=== PATIENT | female | born 1965 | race Caucasian/White ===

== ENCOUNTER 2018-04-10 14:25 | Emergency (ER) | payer MEDICAID ==
[~2018-04-10] VITALS: Ht 154.9 cm; Wt 105.0 kg
[~2018-04-10 14:25] MED LIST: IBUP-1986 PO
[2018-04-10 14:26] VITALS: BP 141/92
[2018-04-10] MEDS ORDERED: CYCL-1 PO (15:01)
== END 2018-04-10 15:48 | disposition home or self-care (01) ==
LOC: ER 14:25
DX: S13.4XXA Sprain of ligaments of cervical spine, initial encounter (principal); R42 Dizziness and giddiness; V89.2XXA Person injured in unspecified motor-vehicle accident, traffic, initial encounter; Y93.89 Activity, other specified; Y92.488 Other paved roadways as the place of occurrence of the external cause; Y99.8 Other external cause status
CPT/HCPCS: 72040; 99284

== ENCOUNTER 2018-04-14 11:03 | Emergency (ER) | payer MEDICAID ==
[~2018-04-14] VITALS: Ht 154.9 cm; Wt 106.4 kg
[~2018-04-14 11:03] MED LIST changes: +CYCL-1 PO
[2018-04-14] MEDS ORDERED: ketorolac trometh inj. 60 MG/2 ML VIAL IM ONE ×2 (12:10→12:50)
[2018-04-14] MEDS ORDERED: meclizine 12.5mg tablet PO ONE (12:10)
[2018-04-14] MEDS ORDERED: ondansetron 4mg rapidly disintigrating tab PO ONE (12:10)
[2018-04-14] MEDS ORDERED: MECL-111 PO (13:30)
[2018-04-14 14:12] VITALS: BP 139/68
== END 2018-04-14 14:14 | disposition home or self-care (01) ==
LOC: ER 11:04
DX: S13.4XXA Sprain of ligaments of cervical spine, initial encounter (principal); R51 Headache; R11.0 Nausea; R42 Dizziness and giddiness; V89.2XXA Person injured in unspecified motor-vehicle accident, traffic, initial encounter; Y93.89 Activity, other specified; Y92.410 Unspecified street and highway as the place of occurrence of the external cause; Y99.8 Other external cause status
CPT/HCPCS: 70450; 72125; 96372; 99284; J1885; J8597

== ENCOUNTER 2019-01-21 09:55 | Emergency (ER) | payer MEDICAID, OTHER ==
[~2019-01-21] VITALS: Ht 154.9 cm; Wt 106.8 kg
[~2019-01-21 09:55] MED LIST changes: +MECL-111 PO
[2019-01-21 09:58] VITALS: BP 118/78
[2019-01-21] MEDS ORDERED: TRAM50TA2 PO (10:57)
[2019-01-21] MEDS ORDERED: CEPH-572 PO (10:57)
== END 2019-01-21 11:07 | disposition home or self-care (01) ==
LOC: ER 09:55
DX: L03.032 Cellulitis of left toe (principal); L84 Corns and callosities; Z98.890 Other specified postprocedural states; Z79.899 Other long term (current) drug therapy
CPT/HCPCS: 73630; 99283